=== PATIENT | male | born 1945 | race African-American/Black ===

== ENCOUNTER 2018-05-04 17:01 | Emergency (ER) | payer MEDICARE ==
[~2018-05-04] VITALS: Ht 185.4 cm; Wt 125.0 kg
[2018-05-04 17:58] LABS: BASOPHILS 0 % (0-2); EOSINOPHILS 3.6 % (0-7); HEMATOCRIT 35.8 % (42.0-54.0); HEMOGLOBIN 11.6 g/dL (13.5-17.5); LYMPHOCYTES 29.8 % (15-50); MCH 27.6 pg (26.0-34.0); MCHC 32.4 g/dL (31.0-37.0); MEAN PLATELET VOLUME 9.1 fL (7.4-10.4); MONOCYTES 6.4 % (2-11); NEUTROPHILS 60.2 % (40-80); PLATELET COUNT 159 10x3/uL (130-400); RBC 4.21 10x6/uL (4.20-6.10); RDW 12.7 % (11.5-14.5); WBC 5.5 10x3/uL (4.8-10.8)
[2018-05-04 18:07] LABS: APTT 36.8 SECONDS (22.8-39.4); INR 0.97 (0.85-1.17); PROTIME 12.5 SECONDS (11.6-15.0)
[2018-05-04 18:15] LABS: D-DIMER-QUANTITATIVE 8.44 ug/mLFEU (0.20-0.54)
[2018-05-04 18:17] LABS: ALBUMIN 3.7 g/dL (3.4-5.0); ANION GAP 13.8 mmol/L (8-16); BILIRUBIN - TOTAL 0.33 mg/dL (0.2-1.3); CALCIUM 9.3 mg/dL (8.5-10.1); CARBON DIOXIDE 26.7 mmol/L (21.0-32.0); CREATININE - SERUM 1.2 mg/dL (0.6-1.3); POTASSIUM - SERUM 4.5 mmol/L (3.5-5.1); PROTEIN - SERUM 7.5 g/dL (6.4-8.2)
[2018-05-04] MEDS ORDERED: XARELTO15 MG PO (19:11)
[2018-05-04] MEDS ORDERED: XARELTO20 MG PO (19:11)
== END 2018-05-04 19:47 | disposition home or self-care (01) ==
LOC: D.ER 17:01
PROVIDERS: Family Medicine
DX: I82.4Z1 Acute embolism and thrombosis of unspecified deep veins of right distal lower extremity (principal); R22.41 Localized swelling, mass and lump, right lower limb; E11.9 Type 2 diabetes mellitus without complications; I10 Essential (primary) hypertension; I25.10 Atherosclerotic heart disease of native coronary artery without angina pectoris; Z85.46 Personal history of malignant neoplasm of prostate

== ENCOUNTER → 2018-05-22 13:17 | Outpatient (CLI) | payer MEDICARE ==
[2018-05-04 17:03] VITALS: BMI 36.3
[~2018-05-22 13:17] MED LIST: XARELTO15 MG PO; XARELTO20 MG PO
== END | disposition home or self-care (01) ==
LOC: D.CT 13:17
DX: R79.1 Abnormal coagulation profile (principal)